=== PATIENT | female | born 1990 | race Caucasian/White ===

== ENCOUNTER 2018-05-02 07:09 | Emergency (ER) | payer BC, MEDICAID, OTHER ==
[~2018-05-02] VITALS: Ht 172.7 cm; Wt 117.9 kg
[2018-05-02 07:32] VITALS: BP 115/76
[2018-05-02 07:56] LABS: Urine Bacteria FEW /hpf (None Seen); Urine Blood Negative /uL (Negative); Urine Specific Gravity 1.015 (1.001-1.035); Urine Sperm PRESENT /hpf (None Seen); Urine WBC <1 /hpf (0 - 5)
== END 2018-05-02 08:31 | disposition left against medical advice (07) ==
LOC: EDSEX 07:09 → ER 07:09 → EDBD 07:09 → ER 08:31
DX: R10.9 Unspecified abdominal pain (principal); Z53.21 Procedure and treatment not carried out due to patient leaving prior to being seen by health care provider
CPT/HCPCS: 81001; 81025

== ENCOUNTER 2021-10-30 15:37 | Emergency (ER) | payer MEDICAID | END 2021-10-30 18:51 | disposition left against medical advice (07) | LOC: ER 15:41 | DX: U07.1 COVID-19 (principal); Z53.21 Procedure and treatment not carried out due to patient leaving prior to being seen by health care provider ==

== ENCOUNTER 2023-10-22 13:41 | Emergency (ER) | payer MEDICAID ==
[~2023-10-22] VITALS: Ht 160 cm; Wt 126.8 kg
[2023-10-22 15:26] VITALS: BP 138/77; PULSE 94; RESP 18; TEMP 97.8; O2SAT 97
[2023-10-22] MEDS ORDERED: TRAM50TA2 PO (15:56)
== END 2023-10-22 16:10 | disposition home or self-care (01) ==
LOC: ER 13:41
DX: S80.862D Insect bite (nonvenomous), left lower leg, subsequent encounter (principal); W57.XXXD Bitten or stung by nonvenomous insect and other nonvenomous arthropods, subsequent encounter

== ENCOUNTER 2024-12-09 15:43 | Emergency (ER) | payer MEDICAID ==
[~2024-12-09] VITALS: Ht 160 cm; Wt 87.1 kg
[~2024-12-09 15:43] MED LIST: TRAM50TA2 PO
[2024-12-09 15:48] VITALS: BP 121/63; PULSE 78; RESP 18; TEMP 97.9; O2SAT 97
== END 2024-12-09 16:27 | disposition left against medical advice (07) ==
LOC: ER 15:43
DX: Z48.00 Encounter for change or removal of nonsurgical wound dressing (principal); Z53.21 Procedure and treatment not carried out due to patient leaving prior to being seen by health care provider